=== PATIENT | female | born 1995 | race Caucasian/White ===

== ENCOUNTER 2018-07-30 13:40 | Emergency (ER) | payer OTHER ==
[~2018-07-30] VITALS: Ht 157.5 cm; Wt 77.1 kg
[2018-07-30 15:18] VITALS: Ht 157.5 cm; Wt 77.1 kg
[2018-07-30 15:53] LABS: BASOPHIL % 0.2 % (0-2); PLATELET COUNT 262 x10^3mcL (130-400)
[2018-07-30 15:54] LABS: RED CELL DISTRIBUTION WIDTH 19.3 % (11.5-14.5)
[2018-07-30 17:26] VITALS: BP 120/71
== END 2018-07-30 17:26 | disposition home or self-care (01) ==
LOC: ED 13:40
PROVIDERS: Emergency Medicine
DX: N93.9 Abnormal uterine and vaginal bleeding, unspecified (principal); R42 Dizziness and giddiness; R11.0 Nausea; F32.9 Major depressive disorder, single episode, unspecified
CPT/HCPCS: 36415